=== PATIENT | male | born 1990 | race Two or more races ===

== ENCOUNTER 2019-10-03 12:19 | Emergency (ER) | payer MEDICAID ==
[~2019-10-03] VITALS: Ht 175.3 cm; Wt 66.0 kg
[2019-10-03 13:53] VITALS: BP 137/70
== END 2019-10-03 13:55 | disposition home or self-care (01) ==
LOC: ER 12:19
DX: J02.9 Acute pharyngitis, unspecified (principal); J39.2 Other diseases of pharynx; Z98.890 Other specified postprocedural states
CPT/HCPCS: 99281